=== PATIENT | female | born 1990 | race African-American/Black ===

== ENCOUNTER 2016-10-15 09:09 | Emergency (ER) | payer SELFPAY ==
--- NOTE | 2016-10-15 10:11 | ER Document Report ---
ED Flu Like - General Chief Complaint: Flu Symptoms Stated Complaint: FLU SYMPTOMS Time seen by provider: 10:00 Mode of Arrival: Ambulatory Information source: [facility] Records Notes: This 26-year-old female patient comes emergency room complaining of onset Thursday of cough, body aches, nasal congestion, nausea vomiting diarrhea. She works at [employer] and reports several other people there have the same symptoms. The patient is sitting on the stretcher sobbing and crying uncontrollably. She states this is because she does not like hospitals. She does suffer from bipolar disorder. TRAVEL OUTSIDE OF THE [place] IN LAST 30 DAYS: No - Related Data Allergies/Adverse Reactions: blueberry Allergy (Verified 10/15/16 10:12) No Known Drug Allergies Allergy (Verified 10/15/16 10:12) strawberry Allergy (Verified 10/15/16 10:12) Past Medical History - General Information source: Patient, [facility] Records - Social History Smoking Status: Never Smoker Cigarette use (# per day): No Chew tobacco use (# tins/day): No Smoking Education Provided: No Frequency of alcohol use: None Drug Abuse: Bath salts Occupation: [employer] Family History: Reviewed & Not Pertinent Patient has suicidal ideation: No Patient has homicidal ideation: No - Medical History Medical History: Negative Psychiatric Medical History: Reports: Hx Bipolar Disorder Surgical Hx: Negative - Immunizations Immunizations up to date: Yes Hx Diphtheria, Pertussis, Tetanus Vaccination: No Review of Systems - Review of Systems Constitutional: Chills, Fever EENT: Nose congestion, Nose discharge, Sinus discharge Cardiovascular: No symptoms reported Respiratory: Cough Gastrointestinal: Diarrhea, Nausea, Vomiting Genitourinary: No symptoms reported Female Genitourinary: No symptoms reported Musculoskeletal: No symptoms reported Skin: No symptoms reported Hematologic/Lymphatic: No symptoms reported Neurological/Psychological: No symptoms reported Physical Exam - Vital signs Interpretation: Normal - HEENT Head: Normocephalic, Atraumatic Eyes: Normal Pupils: PERRL Tympanic membrane: Retracted Pharynx: Normal Neck: Normal - Respiratory Respiratory status: No respiratory distress Breath sounds: Nonproductive cough - Course breath sounds with some rhonchi on forced cough - Cardiovascular Rhythm: Regular - Abdominal Inspection: Normal - Back Back: Normal - Extremities General upper extremity: Normal ROM General lower extremity: Normal inspection - Neurological Neuro grossly intact: Yes - Psychological Associated symptoms: Depressed - Sobbing, crying - Skin Skin Temperature: Warm Skin Moisture: Dry Skin Color: Normal Discharge - Discharge Clinical Impression: Influenza Condition: Stable Disposition: HOME, SELF-CARE Additional Instructions: Influenza: What are conditions that should receive medical attention? The development of difficulty breathing. Lip color changes to blue or purple. Persistent vomiting and unable to keep liquids down with signs of dehydration such as: dizziness when standing, unable to urinate, or if child/infant is crying no tears are noticed. Is less responsive than normal or becomes confused. How do I decrease the spread of flu in my home? Taking care of the sick patient at home: Keep the sick person in a room separate from the common areas of the house. Keep the "sickroom" door closed. If the person with the flu needs to leave the home, they should cover their nose/mouth when coughing or sneezing and wear a disposable (surgical) mask if available. These masks may be available at your local pharmacy, medical supply and hardware store. If the sick person is in common areas of the house, have them wear a surgical mask. If possible, have the sick person use a separate bathroom that should be cleaned daily with a household disinfectant. Household Cleaning, laundry and waste disposal: Tissues and other disposable items used by the sick person should be thrown away in the trash. Wash your hands after touching these used items. No special waste disposal is required. Keep surfaces (especially bedside tables, bathroom surfaces, and toys for children) clean by wiping them down with a safe household disinfectant according to the directions on the product label. Per CDC advice, most people will not receive testing to confirm flu. For more information, you can call the Centers for Disease Control and Prevention (CDC) Hotline at 3-325-RWRMassive SolutionsINFO This line is available in Bhutanese and [place]an, 24 hours a day, 7 days a week. Or www.[employer] or www.cdc.gov Flu-Like Illness Home Instructions: The influenza virus infection can cause a wide rage of symptoms, including: Fever, cough, sore throat, body aches, headaches, chills, fatigue, with some patients reporting diarrhea and vomiting Like seasonal influenza A, H1N1 ("swine flu")in humans can vary in severity from mild to severe Severe illness with pneumonia, respiratory failure and even is possible Certain groups might be more likely to develop a severe illness from H1N1 infection. Sometimes bacterial infections may occur at the same time as or after infection with influenza viruses and lead to pneumonias, ear infections, or sinus infections. How Flu Spreads The main way that influenza viruses spread is through respiratory droplets of coughs and sneezes. This can happen when someone with the infection coughs or sneezes and the particles fly through the air and land on other people and surfaces. If the person covers their mouth and nose with their hand but does not wash their hands immediately, then these germs are passed onto the next object that they touch. People with Influenza A who are cared for at home should: Check with their doctor about any special care that they might need if they are or have a health condition such as diabetes, heart disease, asthma or emphysema. Also, limit caregiver to one (if possible). women or those with chronic health conditions should not take care of the flu patient unless necessary. Check with their doctor about whether or not medications are needed that may lessen the symptoms of the flu. Stay at home until 24 hours fever free without the use of fever reducing medication. Get plenty of rest and avoid other healthy people in your home. Drink plenty of clear liquids to keep from getting dehydrated. Take medications like Tylenol (Acetaminophen), Advil/Motrin/Nuprin ( Ibuprofen) or Aleve (Naproxen) for fevers and aches. All children under the age of 18 years of age should not take aspirin or products containing aspirin (e.g. Pepto Bismol), as this can cause a rare serious illness called Jose Syndrome. Over the counter medications for flu and colds may help, but it is very important to follow the package directions. Remember that the medicine may help the symptoms, but it will not help prevent others from getting sick if they are around you. Cover coughs and sneezes using your bent arm. Clean hands with soap and water or an alcohol-based hand rub often, especially after using tissues to cough or sneeze. Encourage hand washing frequently for all people living in the home! The sick person should not have visitors other than caregivers. Encourage concerned loved ones to call instead of visit. Avoid close contact with others-do not go to work or school while sick. DRINK PLENTY OF FLUIDS. TRY ROBITUSSIN-DM FOR COUGH CONTROL. TAKE TYLENOL EVERY FOUR HOURS FOR FEVER. TAKE ALEVE 2 TABLETS EVERY 12 HOURS FOR ACHES AND PAINS. GET PLENTY OF REST AND SLEEP. GET A FLU SHOT NEXT YEAR. RETURN TO THE EMERGENCY ROOM IF ANY NEW OR WORSENING SYMPTOMS. Forms: Return to Work
[2016-10-15 10:37] VITALS: BP 110/65
== END 2016-10-15 10:37 | disposition home or self-care (01) ==
LOC: ER 09:09
DX: J11.1 Influenza due to unidentified influenza virus with other respiratory manifestations (principal); M79.1 Myalgia; R50.9 Fever, unspecified; R19.7 Diarrhea, unspecified
CPT/HCPCS: 99283

== ENCOUNTER 2016-12-09 16:08 | Emergency (ER) | payer SELFPAY ==
--- NOTE | 2016-12-09 16:21 | ER Document Report ---
ED Medical Screen (RME) - General Chief Complaint: Shortness Of Breath Stated Complaint: SHORTNESS OF BREATH/CHEST PAIN Time seen by provider: 16:20 Mode of Arrival: Wheelchair Information source: Patient TRAVEL OUTSIDE OF THE [place] IN LAST 30 DAYS: No - HPI Patient complains to provider of: chest pain, SOB Onset: This afternoon - 3pm Onset/Duration: Gradual Quality of pain: Achy, Pressure Severity: Moderate Pain Level: 3 Associated Symptoms: Chest pain, Cough (productive), Shortness of breath Exacerbated by: Denies Relieved by: Denies Notes: 12/09/16 16:25 Patient is a 26-year-old female who presents to the emergency room complaining of chest pain and shortness of breath this started around 3 PM, this information was provided by her significant other, because patient refused to answer any questions, she was sitting in the chair, crying, and hyperventilating , repeatedly asking her significant other to take her home that she did not want to be here, when I inquired to patient is to why she wanted to leave she said she doesn't like hospitals, I repeatedly told her that it really like to help her by ordering some tests and trying to figure out why she is feeling the way she is feeling, but if that she did not wish to stay I could not force any testing or imprisoned her in the emergency room, at which point in time she stood up out of her chair, stated "Fuck hospitals" and walked out - Related Data Allergies/Adverse Reactions: blueberry Allergy (Verified 10/15/16 10:12) No Known Drug Allergies Allergy (Verified 10/15/16 10:12) strawberry Allergy (Verified 10/15/16 10:12) Past Medical History Renal/ Medical History: Denies: Hx Peritoneal Dialysis Psychiatric Medical History: Reports: Hx Bipolar Disorder - Immunizations Immunizations up to date: Yes Hx Diphtheria, Pertussis, Tetanus Vaccination: No Doctor's Discharge - Discharge Disposition: ELOPED
== END 2016-12-09 16:25 | disposition left against medical advice (07) ==
LOC: ER 16:08
DX: R07.89 Other chest pain (principal); R06.02 Shortness of breath; Z53.29 Procedure and treatment not carried out because of patient's decision for other reasons; Z91.013 Allergy to seafood
CPT/HCPCS: 99281

== ENCOUNTER 2017-11-30 15:02 | Emergency (ER) | payer MEDICAID ==
--- NOTE | 2017-11-30 15:51 | ER Document Report ---
ED Medical Screen (RME) - General Chief Complaint: Abdominal Cramping Stated Complaint: CRAMPING Time Seen by Provider: 11/30/17 15:49 Notes: pt has pelvic pain but no bleeding/discharge. had normal US two weeks ago. is 16wks preg. TRAVEL OUTSIDE OF THE [place] IN LAST 30 DAYS: No - Related Data Allergies/Adverse Reactions: blueberry Allergy (Verified 11/30/17 15:04) No Known Drug Allergies Allergy (Verified 11/30/17 15:04) strawberry Allergy (Verified 11/30/17 15:04) Past Medical History - Social History Chew tobacco use (# tins/day): No Frequency of alcohol use: None Drug Abuse: None Renal/ Medical History: Denies: Hx Peritoneal Dialysis Psychiatric Medical History: Reports: Hx Bipolar Disorder - Immunizations Immunizations up to date: Yes Hx Diphtheria, Pertussis, Tetanus Vaccination: No Physical Exam - Vital signs Vitals: Temp Pulse Resp BP Pulse Ox 97.9 F 103 H 16 121/68 100 11/30/17 15:08 11/30/17 15:08 11/30/17 15:08 11/30/17 15:08 11/30/17 15:08 Course - Vital Signs Vital signs: Temp Pulse Resp BP Pulse Ox 97.9 F 103 H 16 121/68 100 11/30/17 15:08 11/30/17 15:08 11/30/17 15:08 11/30/17 15:08 11/30/17 15:08
[2017-11-30 16:26] LABS: ABSOLUTE EOSINOPHILS # (AUTO) 0.1 10^3/uL (0.0-0.6); ABSOLUTE LYMPHOCYTES (AUTO) 1.9 10^3/uL (0.5-4.7); ABSOLUTE MONOCYTES (AUTO) 0.4 10^3/uL (0.1-1.4); ABSOLUTE NEUT (AUTO) 3.1 10^3/uL (1.7-8.2); BASOPHILS % (AUTO) 0.5 % (0-2); EOSINOPHILS % (AUTO) 2.7 % (0-6); HEMATOCRIT 37.9 % (36.0-47.0); HEMOGLOBIN 12.8 g/dL (12.0-15.5); MEAN CORPUSCULAR HEMOGLOBIN 28.8 pg (27.0-33.4); MEAN CORPUSCULAR HGB CONC 33.8 g/dL (32.0-36.0); MEAN CORPUSCULAR VOLUME 85 fl (80-97); MONOCYTES % (AUTO) 6.5 % (3-13); PLATELET COUNT 170 10^3/uL (150-450); RED BLOOD COUNT 4.44 10^6/uL (3.72-5.28); RED CELL DISTRIBUTION WIDTH 13.5 % (11.5-14.0); SEGMENTED NEUTROPHILS % (AUTO) 56.3 % (42-78); TOTAL CELLS COUNTED % (AUTO) 100 %; WHITE BLOOD COUNT 5.5 10^3/uL (4.0-10.5)
[2017-11-30 16:41] LABS: APPEARANCE,URINE SLIGHTLY-CLOUDY; BILIRUBIN,URINE NEGATIVE (NEGATIVE); COLOR,URINE YELLOW; GLUCOSE, URINE 50 mg/dL (NEGATIVE); KETONES,URINE NEGATIVE (NEGATIVE); LEUKOCYTE ESTERASE,URINE SMALL (NEGATIVE); NITRITE,URINE NEGATIVE (NEGATIVE); PROTEIN,URINE NEGATIVE (NEGATIVE); URINE SPECIFIC GRAVITY 1.023
[2017-11-30 16:45] LABS: ALANINE AMINOTRANSFERASE 16 U/L (9-52); ALBUMIN 3.7 g/dL (3.5-5.0); ALKALINE PHOSPHATASE 40 U/L (38-126); ANION GAP 7 (5-19); ASPARTATE AMINO TRANSFERASE 23 U/L (14-36); BILIRUBIN,DIRECT 0.2 mg/dL (0.0-0.4); BILIRUBIN,TOTAL 0.6 mg/dL (0.2-1.3); BLOOD UREA NITROGEN 12 mg/dL (7-20); CALCIUM 9.7 mg/dL (8.4-10.2); CARBON DIOXIDE 25 mmol/L (22-30); CHLORIDE 105 mmol/L (98-107); GLUCOSE 101 mg/dL (75-110); POTASSIUM 3.8 mmol/L (3.6-5.0); SODIUM 136.6 mmol/L (137-145); TOTAL PROTEIN 6.8 g/dL (6.3-8.2)
[2017-11-30] MEDS ORDERED: ACETAMINOPHEN 325 MG TABLET PO ONE (19:52)
[2017-11-30] MEDS ORDERED: ONDANSETRON 4 MG TAB.RAPDIS PO ONE (19:52)
--- NOTE | 2017-11-30 19:52 | ER Document Report ---
ED General - General Chief Complaint: Abdominal Cramping Stated Complaint: CRAMPING Time Seen by Provider: 11/30/17 15:49 TRAVEL OUTSIDE OF THE [place] IN LAST 30 DAYS: No - HPI Notes: Patient is a 27-year-old female approximately 16 weeks who presents to the ED complaining of pelvic cramping that was initially intermittent, but has become relatively constant over the last day. Patient states that she has not had any vaginal discharge, odor, or bleeding. She has had a decreased appetite with occasional nausea and vomiting this morning. Patient states that she is urinating normally and having normal bowel movement. Patient states that the pain does not radiate. Her SYSTEM SUPPORT ADMINISTRATOR is the women[facility] clinic and she reports having an ultrasound couple weeks ago which was normal. She has no other significant past medical history. Denies any smoking, IV drug use, or alcohol use. Denies any drug allergies. Denies any headache, fever, neck pain, URI, sore throat, chest pain, palpitations, syncope, cough, shortness of breath, wheeze, dyspnea, diarrhea, urinary retention, dysuria, hematuria, back pain, loss of control of bowel or bladder, numbness/tingling, saddle anesthesia, muscle paralysis/weakness, or rash. - Related Data Allergies/Adverse Reactions: blueberry Allergy (Verified 11/30/17 15:04) No Known Drug Allergies Allergy (Verified 11/30/17 15:04) strawberry Allergy (Verified 11/30/17 15:04) Past Medical History - Social History Smoking Status: Never Smoker Chew tobacco use (# tins/day): No Frequency of alcohol use: None Drug Abuse: None Family History: Reviewed & Not Pertinent Patient has suicidal ideation: No Patient has homicidal ideation: No Renal/ Medical History: Denies: Hx Peritoneal Dialysis Psychiatric Medical History: Reports: Hx Bipolar Disorder - Immunizations Immunizations up to date: Yes Hx Diphtheria, Pertussis, Tetanus Vaccination: No Review of Systems - Review of Systems -: Yes All other systems reviewed and negative Physical Exam - Vital signs Vitals: Temp Pulse Resp BP Pulse Ox 97.9 F 103 H 16 121/68 100 11/30/17 15:06 11/30/17 15:06 11/30/17 15:06 11/30/17 15:06 11/30/17 15:06 - Notes Notes: PHYSICAL EXAMINATION: GENERAL: Well-appearing, well-nourished and in no acute distress. A&Ox4. Answers questions appropriately. NECK: Normal range of motion, supple without lymphadenopathy LUNGS: Breath sounds clear to auscultation bilaterally and equal. No wheezes rales or rhonchi. HEART: Regular rate and rhythm without murmurs, rubs, gallops. ABDOMEN: Soft, nondistended abdomen. No masses appreciated. Normal bowel sounds present. No CVA tenderness bilaterally. + tenderness lower abdomen, minimal guarding. Musculoskeletal: FROM to passive/active. Strength 5+/5. Extremities: No cyanosis, clubbing, or edema b/l. Peripheral pulses 2+. Capillary refill less than 3 seconds. NEUROLOGICAL: Normal speech, normal gait. Normal sensory, motor exams PSYCH: Normal mood, normal affect. SKIN: Warm, Dry, normal turgor, no rashes or lesions noted. Course - Re-evaluation Re-evalutation: 11/30/17 21:53 Patient is an afebrile, well-hydrated, 27-year-old female who presents to the ED with pelvic cramping and possible placental abruption the ultrasound. Vitals are acceptable. PE is otherwise unremarkable. Patient is currently hemodynamically stable with an unremarkable CBC, CMP, and urinalysis. See the transvaginal ultrasound report. Patient has not had any vaginal bleeding. I did call and review this case with SYSTEM SUPPORT ADMINISTRATOR Dr. Carr. Patient is currently less than 24 weeks gestation so there is nothing that she will do in the emergency department at this time, but would like her to follow-up with the office tomorrow morning. Low suspicion/risk for acute appendicitis, bowel obstruction, acute cholecystitis, acute cholangitis, perforated diverticulitis, incarcerated hernia, pancreatitis, perforated ulcer, peritonitis, sepsis, pelvic inflammatory disease, ectopic , tubo-ovarian abscess, ovarian torsion. Patient is aware that her condition can change from initial presentation and she needs to monitor symptoms closely and seek medical attention if any acute changes. Conservative measures otherwise for symptoms. Recheck with OBGYN tomorrow. Recheck with your PCM in 1 week. Return to the ED with any worsening/concerning symptoms otherwise as reviewed in discharge. Patient is in agreement. - Vital Signs Vital signs: Temp Pulse Resp BP Pulse Ox 98.2 F 84 16 106/67 97 11/30/17 20:10 11/30/17 20:10 11/30/17 20:10 11/30/17 20:10 11/30/17 20:10 - Laboratory Result Diagrams: 11/30/17 16:05 11/30/17 16:05 Laboratory results interpreted by me: 11/30/17 11/30/17 16:05 16:05 Sodium 136.6 L Urine Glucose (UA) 50 H Urine Urobilinogen 2.0 H Ur Leukocyte Esterase SMALL H Discharge - Discharge Clinical Impression: Pelvic pain affecting Qualifiers: Trimester: second trimester Qualified Code(s): O26.892 - Other specified related conditions, second trimester; R10.2 - Pelvic and perineal pain ; R10.2 - Pelvic and perineal pain Condition: Stable Disposition: HOME, SELF-CARE Instructions: Mild Placental Abruption ([facility]), Pelvic Pain in ([facility]) Additional Instructions: maintain fluid intake Proper hygenic technique Keep the skin clean Tylenol as needed Return immediately if symptoms worsen Recheck with OBGYN tomorrow F/u with your PCM in 1 week for a recheck Return to the ED with any development of [place]/fever, trouble with vision, eye redness, worsening pain, urethral discharge, urinary retention, blood in the urine, flank pain, abdominal pain, n/v, Chest Pain, shortness of breath, joint pains, trouble breathing, or any other worsening/concerning symptoms as needed otherwise. Referrals: HENRI SPEARS MD [Primary Care Provider] - Follow up in 1 week SOPHIE CARR MD [ACTIVE STAFF] - Follow up tomorrow
--- NOTE | 2017-11-30 21:36 | RADIOLOGY REPORT (SQ) ---
EXAM DESCRIPTION: U/S OB LIMITED COMPLETED DATE/TIME: 11/30/2017 9:05 pm REASON FOR STUDY: pelvic pain, COMPARISON: None. TECHNIQUE: Limited endovaginal grayscale ultrasound for evaluation of specific requested obstetrical parameters. LIMITATIONS: None. FINDINGS: CERVICAL LENGTH: 3.4 cm. Mild funneling with endocervical fluid. MICHAEL: 8.7 cm. FHR: 149 beats per minute. PRESENTATION: Breech OTHER: Anterior placenta with a focal hypoechoic rounded 4 cm bulge which shows internal Doppler dete ctable vascularity. Deep to this, hypoechoic crescent of retroplacental hematoma is likely. Trace f ree fluid. IMPRESSION: 1. Limited OB ultrasound is concerning for placental abruption. 2. Living IUP. 3. Mild funneling and endocervical fluid. Trimester of : Second trimester - 13 weeks 1 day to 27 weeks 6 days. Pertinent positive or negative findings of the imaging study reported as a CRITICAL EXAM to ER nurse Ebony at21:29 on 11/30/2017. Category of Critical Exam: Placental abruption. TECHNICAL DOCUMENTATION: JOB ID: [id number] [employer]- All Rights Reserved Reading location - IP/workstation name: [email or web address]
[2017-11-30 22:23] VITALS: BP 119/73
== END 2017-11-30 22:23 | disposition home or self-care (01) ==
LOC: ER 15:02
DX: O26.892 Other specified pregnancy related conditions, second trimester (principal); R10.2 Pelvic and perineal pain; R63.0 Anorexia; O21.9 Vomiting of pregnancy, unspecified; Z3A.00 Weeks of gestation of pregnancy not specified; Z91.018 Allergy to other foods
CPT/HCPCS: 99284; 36415; 85025; 80053; 81001; 76815; J3490; S0119

== ENCOUNTER 2018-05-21 01:20 | Observation (INO) | payer MEDICAID ==
--- NOTE | 2018-05-21 01:36 | ER Document Report ---
ED General - General Chief Complaint: Vaginal Pain Stated Complaint: VAGINAL PROBLEM Time Seen by Provider: 05/21/18 01:35 Notes: 27-year-old female 27-year-old female 3 days vaginal delivery presents with resolved crampy lower abdominal pain earlier today and "something hanging out of my vaginal area" which she says she noticed tonight when she is going in the back. She thought it would like a blood clot but it was "still attached" she tried to brush it away and it did not move. She said she has been having some spotting since the delivery but otherwise has felt well. She has no known history of bleeding disorders, did not have any comp occasions in the hospital. TRAVEL OUTSIDE OF THE [place] IN LAST 30 DAYS: No - Related Data Allergies/Adverse Reactions: blueberry Allergy (Verified 05/21/18 01:48) No Known Drug Allergies Allergy (Verified 05/21/18 01:48) strawberry Allergy (Verified 05/21/18 01:48) Past Medical History - Social History Smoking Status: Never Smoker Family History: Reviewed & Not Pertinent Renal/ Medical History: Denies: Hx Peritoneal Dialysis Psychiatric Medical History: Reports: Hx Bipolar Disorder - Immunizations Immunizations up to date: Yes Hx Diphtheria, Pertussis, Tetanus Vaccination: No Physical Exam - Vital signs Vitals: Temp Pulse Resp BP Pulse Ox 98.3 F 94 20 128/78 H 99 05/21/18 01:27 05/21/18 01:27 05/21/18 01:27 05/21/18 01:27 05/21/18 01:27 Course - Re-evaluation Re-evalutation: 05/21/18 01:44 day 3 presents with protruding material from the vagina suspicious for retained placenta. Afebrile with normal vitals and looks well. 05/21/18 01:[address] Acosta from OB. She will evaluate the patient but suspects the patient has retained placenta with close cervix and will need to go to the operating room. Ordered labs. Admitted. 05/21/18 02:03 Seen by PROFESSOR OF MANAGEMENT. They extracted a large amount of retained membranes. They recommended admission, Unasyn cultures and labs. - Vital Signs Vital signs: Temp Pulse Resp BP Pulse Ox 98.3 F 94 20 128/78 H 99 05/21/18 01:27 05/21/18 01:27 05/21/18 01:27 05/21/18 01:27 05/21/18 01:27 Discharge - Discharge Clinical Impression: Retained placenta after delivery without hemorrhage but with other complication Condition: Fair Disposition: ADMITTED INPATIENT Admitting Provider: [facility] Admitted: Post
[2018-05-21] MEDS ORDERED: AMPICILLIN SOD/SULBACTAM 3 GM VIAL IV ONE (02:02)
[2018-05-21] MEDS ORDERED: KETOROLAC TROMETHAMINE INJ/PF 30 MG/1 ML SDV IV ONE (02:14)
[2018-05-21] MEDS ORDERED: BENZOCAINE/MENTHOL AEROSOL SPRAY 56 ML TOP PRN (02:21)
[2018-05-21] MEDS ORDERED: PROMETHAZINE HCL 25 MG SUPP.RECT PR PRN (02:21)
[2018-05-21] MEDS ORDERED: ACETAMINOPHEN WITH CODEINE #3 TABLET PO PRN (02:21)
[2018-05-21] MEDS ORDERED: PROMETHAZINE HCL 25 MG TABLET PO PRN (02:21)
[2018-05-21] MEDS ORDERED: DIPHENHYDRAMINE HCL 25 MG CAPSULE PO PRN (02:21)
[2018-05-21] MEDS ORDERED: ZOLPIDEM TARTRATE 5 MG TABLET PO PRN (02:21)
[2018-05-21] MEDS ORDERED: GLYCERIN/WITCH HAZEL LEAF 1 EACH MED..PAD TP PRN (02:21)
[2018-05-21] MEDS ORDERED: ACETAMINOPHEN 325 MG TABLET PO PRN (02:21)
[2018-05-21] MEDS ORDERED: PROMETHAZINE HCL INJ 25 MG/1 ML VIAL IV PRN ×3 (02:21→12:24)
[2018-05-21] MEDS ORDERED: NA PHOS,M-B/NA PHOS,DI-BA (ADULT) 133 ML ENEMA PR PRN (02:21)
[2018-05-21] MEDS ORDERED: MISOPROSTOL 0.2 MG TABLET PR ONE (02:21)
[2018-05-21] MEDS ORDERED: MAGNESIUM HYDROXIDE SUSP 30 ML UDCUP PO PRN (02:21)
[2018-05-21] MEDS ORDERED: PSEUDOEPHEDRINE HCL 30 MG TABLET PO PRN (02:21)
[2018-05-21] MEDS ORDERED: DIBUCAINE 1% OINTMENT 28 GM TP PRN (02:21)
--- NOTE | 2018-05-21 02:27 | PDOC H&P ---
History of Present Illness Admission Date/PCP: 05/21/18 01:58 HENRI SPEARS MD Patient complains of: vaginal bleeding and something coming from vagina History of Present Illness: VANESA HERRERA is a 27 year old female s/p with [facility] in [place] on Thursday (now PPD#4). She reports uncomplicated with [facility] and negative GBS. She reports that she had an uncomplicated vaginal delivery and reports that the placenta was delivered/removed. SHe denies fevers/chills/ nausea/vomiting. SHe is currently . She was reportedly seen at [facility] in the beginning of her but then delivered with [facility] because she does not like hospitals. Past Medical History Gynecological Infection: No 1 Baby 1 Female Delivery: Spontaneous Vaginal Delivery Psychiatric Medical History: Reports: Bipolar Disorder Past Surgical History Past Surgical History: Reports: None Social History Information Source: Patient Lives with: Family Smoking Status: Never Smoker Frequency of Alcohol Use: None Hx Recreational Drug Use: No Drugs: None Hx Prescription Drug Abuse: No - Advance Directive Resuscitation Status: Full Code Family History Family History: Reviewed & Not Pertinent Parental Family History Reviewed: No Children Family History Reviewed: NA Sibling(s) Family History Reviewed.: NA Medication/Allergy Home Medications: Pnv No.95/Ferrous Fum/Folic AC [ Formula] 1 each PO DAILY 05/21/18 Allergies/Adverse Reactions: blueberry Allergy (Verified 05/21/18 01:48) No Known Drug Allergies Allergy (Verified 05/21/18 01:48) strawberry Allergy (Verified 05/21/18 01:48) Review of Systems Constitutional: PRESENT: as per HPI. ABSENT: chills, fever(s), headache(s), weight gain, weight loss Cardiovascular: ABSENT: chest pain, dyspnea on exertion, edema, orthropnea, palpitations Respiratory: ABSENT: cough, hemoptysis Gastrointestinal: ABSENT: abdominal pain, constipation, diarrhea, hematemesis, hematochezia, nausea, vomiting Genitourinary: ABSENT: dysuria, hematuria Musculoskeletal: ABSENT: joint swelling Integumentary: ABSENT: rash, wounds Neurological: ABSENT: abnormal gait, abnormal speech, confusion, dizziness, focal weakness, syncope Psychiatric: ABSENT: anxiety, depression, homidical ideation, suicidal ideation Endocrine: ABSENT: cold intolerance, heat intolerance, polydipsia, polyuria Hematologic/Lymphatic: ABSENT: easy bleeding, easy bruising Physical Exam - Physical Exam Vital Signs: Temp Pulse Resp BP Pulse Ox 98.3 F 94 20 128/78 H 99 05/21/18 01:05/21/18 01:05/21/18 01:05/21/18 01:05/21/18 01:27 General appearance: PRESENT: no acute distress, well-developed, well-nourished Head exam: PRESENT: atraumatic, normocephalic Mouth exam: PRESENT: moist, tongue midline Respiratory exam: PRESENT: clear to auscultation irene, symmetrical, unlabored Cardiovascular exam: PRESENT: RRR. ABSENT: diastolic murmur, rubs, systolic murmur Pulses: PRESENT: normal dorsalis pedis pul, +2 pedal pulses bilateral GI/Abdominal exam: PRESENT: normal bowel sounds, soft. ABSENT: distended, guarding, mass, organolmegaly, rebound, tenderness Rectal exam: PRESENT: deferred Extremities exam: PRESENT: full ROM. ABSENT: calf tenderness, clubbing, pedal edema Neurological exam: PRESENT: alert, awake, oriented to person, oriented to place , oriented to time, oriented to situation, CN II-XII grossly intact. ABSENT: motor sensory deficit Psychiatric exam: PRESENT: appropriate affect, normal mood. ABSENT: homicidal ideation, suicidal ideation Skin exam: PRESENT: dry, intact, warm. ABSENT: cyanosis, rash - Obstetrical Exam External Genitalia: normal Vagina: normal, other - upon initial exam in the ER, membranes visibly protruding from os. SSE: probably 10-12 inches of membranes removed, only approx 1-2 of clot possible placental tissue. Result Status: Imported from PACS Assessment & Plan - Diagnosis (1) Retained placenta after delivery without hemorrhage but with other complication Is this a current diagnosis for this admission?: Yes Plan: Pt with large amount of membranes removed from vagina and cervical os which was open. Reviewed with pt that since os was opened able to tease out membranes but unable to know if all of it is out. reviewed with her that would plan cytotec per rectum (1000mcg placed) and see if can obtain even more to come out. then will plan for US and poss D&C if still with retained products. IV abx for 24 to 48 hours since having to remove retained products remote from delivery. Reviewed with pt risk of infection with having retained products and may need D&C. - Time Time Spent: 30 to 50 Minutes Smoking Cessation Education: 3 to 10 minutes Medications reviewed and adjusted accordingly: Yes Anticipated discharge: Home Within: within 48 hours - Inpatient Certification Based on my medical assessment, after consideration of the patient's comorbidities, presenting symptoms, or acuity I expect that the services needed warrant INPATIENT care.: Yes I certify that my determination is in accordance with my understanding of Medicare's requirements for reasonable and necessary INPATIENT services [42 CFR 412.3e].: Yes Medical Necessity: Need For IV Fluids, Need for IV Antibiotics, Need for Surgery Post Hospital Care: D/C Computer Game Tester Documentation
[2018-05-21 02:48] LABS: ABSOLUTE EOSINOPHILS # (AUTO) 0.7 10^3/uL (0.0-0.6); ABSOLUTE LYMPHOCYTES (AUTO) 2.3 10^3/uL (0.5-4.7); ABSOLUTE MONOCYTES (AUTO) 0.7 10^3/uL (0.1-1.4); ABSOLUTE NEUT (AUTO) 7.8 10^3/uL (1.7-8.2); BASOPHILS % (AUTO) 0.3 % (0-2); HEMATOCRIT 32.8 % (36.0-47.0); LYMPHOCYTES % (AUTO) 20.2 % (13-45); MEAN CORPUSCULAR HEMOGLOBIN 28.3 pg (27.0-33.4); MEAN CORPUSCULAR HGB CONC 33.5 g/dL (32.0-36.0); MEAN CORPUSCULAR VOLUME 85 fl (80-97); PLATELET COUNT 161 10^3/uL (150-450); RED BLOOD COUNT 3.87 10^6/uL (3.72-5.28); RED CELL DISTRIBUTION WIDTH 15.3 % (11.5-14.0); SEGMENTED NEUTROPHILS % (AUTO) 67.5 % (42-78); TOTAL CELLS COUNTED % (AUTO) 100 %; WHITE BLOOD COUNT 11.6 10^3/uL (4.0-10.5)
[2018-05-21 03:04] LABS: ANION GAP 7 (5-19); BLOOD UREA NITROGEN 9 mg/dL (7-20); CALCIUM 9.6 mg/dL (8.4-10.2); CARBON DIOXIDE 24 mmol/L (22-30); CHLORIDE 107 mmol/L (98-107); GLUCOSE 117 mg/dL (75-110); POTASSIUM 3.4 mmol/L (3.6-5.0); SODIUM 138.4 mmol/L (137-145)
[2018-05-21] MEDS ORDERED: MISOPROSTOL 0.2 MG TABLET ONE (03:11)
[2018-05-21] MEDS ORDERED: RINGERS SOLUTION,LACTATED 1,000 ML IV PRN (03:28)
[2018-05-21] MEDS: IBUPROFEN 800 MG TABLET PO SCH ×2 (05:09→15:34)
[2018-05-21] MEDS ORDERED: AMPICILLIN SOD/SULBACTAM 3 GM VIAL IV SCH (08:30)
[2018-05-21] MEDS ORDERED: FAMOTIDINE 20 MG TABLET PO SCH (10:00)
[2018-05-21] MEDS ORDERED: FERROUS SULFATE 325 MG TABLET PO SCH (10:00)
[2018-05-21] MEDS ORDERED: PRENATAL VITAMIN W DHA CAPSULE PO SCH (10:00)
[2018-05-21] MEDS ORDERED: DOCUSATE SODIUM 100 MG CAPSULE PO SCH (10:00)
[2018-05-21] MEDS ORDERED: SENNOSIDES/DOCUSATE 8.6-50 MG 1 EACH TABLET PO SCH (10:00)
[2018-05-21] MEDS: ACETAMINOPHEN WITH CODEINE #3 TABLET PO PRN ×2 (10:21→15:32)
--- NOTE | 2018-05-21 10:21 | RADIOLOGY REPORT (SQ) ---
EXAM DESCRIPTION: U/S NON-OB PELVIS W/O DOP COMPLETED DATE/TIME: 05/21/2018 10:08 am REASON FOR STUDY: PPD#4, membranes removed in ER, eval or retain POC COMPARISON: None. TECHNIQUE: Dynamic and static grayscale images acquired of the pelvis via transabdominal approach an d recorded on PACS. Additional selected color Doppler and spectral images recorded. LIMITATIONS: None. FINDINGS: UTERUS: 2.6 cm hypoechoic area at the fundus, possibly a fibroid. ENDOMETRIAL STRIPE: Heterogenous material in the endometrial cavity. On real-time imaging motion is noted. CERVIX: No nabothian cysts. RIGHT OVARY AND DOPPLER: Ovary not visualized. LEFT OVARY AND DOPPLER: Ovary not visualized. FREE FLUID: None noted. OTHER: No other significant finding. MEASUREMENTS: UTERUS: 8 3 x 9 x 14.9 cm. ENDOMETRIAL STRIPE: 13 mm. RIGHT OVARY: Not visualized. LEFT OVARY: Not visualized. IMPRESSION: HETEROGENOUS MATERIAL IN THE ENDOMETRIAL CAVITY. SUSPICIOUS FOR RETAINED PRODUCTS. POSSIBLE UTERINE FIBROID. TECHNICAL DOCUMENTATION: JOB ID: [id number]- All Rights Reserved Rev-01/08 Reading location - IP/workstation name: [email or web address]
[2018-05-21] MEDS ORDERED: KETOROLAC TROMETHAMINE 60 MG/2 ML SDV ONE (10:24)
[2018-05-21] MEDS ORDERED: DEXAMETHASONE SOD PHOSPHATE INJ 4 MG/1 ML VIAL ONE (10:24)
[2018-05-21] MEDS ORDERED: ONDANSETRON HCL INJ/PF 4 MG/2 ML SDV ONE (10:24)
[2018-05-21] MEDS: AMPICILLIN SODIUM/SULBACTAM NA 3 GM in NORMAL SALINE 100 ML IV SCH ×2 (10:25→15:56)
[2018-05-21] MEDS ORDERED: MIDAZOLAM 2 MG/2 ML INJ ONE ×2 (11:49→11:57)
[2018-05-21] MEDS ORDERED: METOCLOPRAMIDE HCL INJ/PF 10 MG/2 ML SDV ONE (11:49)
[2018-05-21] MEDS ORDERED: FAMOTIDINE INJ/PF 20 MG/2 ML SDV IV ONE (11:50)
[2018-05-21] MEDS ORDERED: FENTANYL CITRATE INJ/PF 100 MCG/2 ML AMPUL ONE (11:56)
[2018-05-21] MEDS ORDERED: LIDOCAINE 2% INJ-PF (20 MG/ML) 10 ML AMPUL ONE (11:56)
[2018-05-21] MEDS ORDERED: KETAMINE HCL INJ 500 MG/10 ML VIAL ONE (11:56)
[2018-05-21] MEDS ORDERED: PROPOFOL INJ 200 MG/20 ML VIAL IV ONE ×2 (11:57→11:58)
[2018-05-21] MEDS ORDERED: DIPHENHYDRAMINE HCL 50 MG/ML VIAL IV PRN (12:24)
[2018-05-21] MEDS ORDERED: FENTANYL CITRATE INJ/PF 100 MCG/2 ML AMPUL IV PRN ×3 (12:24)
[2018-05-21] MEDS ORDERED: MEPERIDINE HCL/PF INJ 25 MG/1 ML DISP.SYRIN IV PRN (12:24)
[2018-05-21] MEDS ORDERED: ONDANSETRON HCL INJ/PF 4 MG/2 ML SDV IV PRN (13:19)
--- NOTE | 2018-05-21 13:28 | PDOC DISCHARGE SUMMARY ---
General - Admit/Disc Date/PCP Admission Date/Primary Care Provider: 05/21/18 01:58 HENRI SPEARS MD Discharge Date: 05/21/18 - Discharge Diagnosis (1) Retained placenta after delivery without hemorrhage but with other complication Is this a current diagnosis for this admission?: Yes - Additional Information Resuscitation Status: Full Code Discharge Diet: As Tolerated Discharge Activity: Balance Activity w/Rest, No Lifting/Push/Pulling, Pelvic Rest, Slowly Increase Activity, No tub bath, Walk Frequently Home Medications: Pnv No.95/Ferrous Fum/Folic AC [ Formula] 1 each PO DAILY 05/21/18 History of Present Illness History of Present Illness: VANESA HERRERA is a 27 year old female Hospital Course Hospital Course: pt had a D&C for tetained products of conception Physical Exam - Physical Exam Vital Signs: Temp Pulse Resp BP Pulse Ox 98.7 F 73 14 111/74 100 05/21/18 11:04 05/21/18 11:04 05/21/18 11:04 05/21/18 11:04 05/21/18 11:04 General appearance: PRESENT: no acute distress Respiratory exam: PRESENT: clear to auscultation irene - Obstetrical Exam External Genitalia: normal Vagina: normal, other - upon initial exam in the ER, membranes visibly protruding from os. SSE: probably 10-12 inches of membranes removed, only approx 1-2 of clot possible placental tissue. Result Laboratory Results: 05/21/18 02:28 05/21/18 02:28 05/21/18 05/21/18 05/21/18 02:28 02:28 02:28 WBC 11.6 H RBC 3.87 Hgb 11.0 L Hct 32.8 L MCV 85 MCH 28.3 MCHC 33.5 RDW 15.3 H Plt Count 161 Seg Neutrophils % 67.5 Lymphocytes % 20.2 Monocytes % 6.0 Eosinophils % 6.0 Basophils % 0.3 Absolute Neutrophils 7.8 Absolute Lymphocytes 2.3 Absolute Monocytes 0.7 Absolute Eosinophils 0.7 H Absolute Basophils 0.0 Sodium 138.4 Potassium 3.4 L Chloride 107 Carbon Dioxide 24 Anion Gap 7 BUN 9 Creatinine 0.67 Est GFR ( Amer) > 60 Est GFR (Non-Af Amer) > 60 Glucose 117 H Calcium 9.6 Blood Type B POSITIVE Antibody Screen NEGATIVE Impressions: Pelvis Ultrasound 05/21/18 07:59 IMPRESSION: HETEROGENOUS MATERIAL IN THE ENDOMETRIAL CAVITY. SUSPICIOUS FOR RETAINED PRODUCTS. POSSIBLE UTERINE FIBROID. Plan Discharge Plan: d/c and follow up in one week or prn Time Spent: Less than 30 Minutes
--- NOTE | 2018-05-21 13:41 | OPERATIVE REPORT E ---
Operative Report NAME: VANESA HERRERA : 1990 AGE: 27Y DATE OF SURGERY: 05/21/2018 ROOM: 221 PREOPERATIVE DIAGNOSIS: Retained placental products. POSTOPERATIVE DIAGNOSIS: Retained placental products. OPERATION: Suction D and C and repair of episiotomy. SURGEON: Fidelina HUFFMAN M.D. ANESTHESIA: General. ESTIMATED BLOOD LOSS: Less than 50 mL. TISSUE REMOVED: Contents of uterus. PROCEDURE: Patient was placed in the dorsal lithotomy position, prepped and draped in sterile fashion. Speculum was placed. Cervix was visualized and grasped with single-tooth tenaculum, sounded to a depth of 22 cm. Suction curettage was performed with a moderate amount of tissue being recovered. Sharp curettage was performed followed by repeat suction. Single-tooth tenaculum was removed and hemostasis was noted. It was noted then that the episiotomy had opened and it was repaired with 2-0 Vicryl in the usual fashion. Patient tolerated it well and was taken to recovery in good condition. DICTATING PHYSICIAN: Fidelina HUFFMAN M.D. [id number] PHY#: [id number] ID: [id number] JOB#: [id number] ACCT: [id number] cc:Fidelina HUFFMAN M.D. >
[2018-05-21] MEDS ORDERED: ACETAMINOPHEN 1,000 MG/100 ML RTUPB IV ONE (14:12)
[2018-05-21 18:03] VITALS: BP 126/78
== END 2018-05-21 19:00 | disposition home or self-care (01) ==
LOC: ER 01:20 → EH 01:58 → INTOOBSV 01:58 → 2S 03:08
PROVIDERS: ADMIT Student in an Organized Health Care Education/Training Program; ATTEND Student in an Organized Health Care Education/Training Program
PROC: 10D17Z9 Manual Extraction of Products of Conception, Retained, Via Natural or Artificial Opening (ICD-10-PCS; principal; 2018-05-21 13:00)
DX: O73.1 Retained portions of placenta and membranes, without hemorrhage (principal)
CPT/HCPCS: 99284; 86900; 86901; 36415; 87040; 86850; 85025; 80048; 88305 ×2; 76856; 59160; G0378; J2250; J3490 ×3; J1100; J1885 ×2; J3010; J0295; J2765; J2405; J2704; S0028; J0131; 952

== ENCOUNTER 2019-06-03 11:27 | Emergency (ER) | payer SELFPAY ==
[2019-06-03] MEDS ORDERED: IBUPROFEN 600 MG TABLET PO ONE (11:38)
[2019-06-03] MEDS ORDERED: IPRATROPIUM/ALBUTEROL 0.5-2.5 MG/3 ML AMPUL NEB ONE (11:38)
[2019-06-03] MEDS ORDERED: ONDANSETRON 4 MG TAB.RAPDIS PO ONE (11:39)
[2019-06-03] MEDS ORDERED: NORMAL SALINE 1000 ML 1,000 ML IV ONE ×2 (11:41→14:41)
--- NOTE | 2019-06-03 11:41 | ER Document Report ---
ED Medical Screen (RME) - General Chief Complaint: Cold Symptoms Stated Complaint: DIFFICULTY BREATHING Time Seen by Provider: 06/03/19 11:38 Primary Care Provider: HENRI SPEARS MD [Primary Care Provider] - Follow up as needed TRAVEL OUTSIDE OF THE [place] IN LAST 30 DAYS: No - HPI Notes: 06/03/19 11:39 Patient is a 28-year-old female no significant past medical history who presents complaining nasal congestion/discharge, hoarseness of her voice, dry cough, chills, vomiting/diarrhea that began 3 days ago. Patient states that her work sent her today because she felt dizzy and lightheaded. She did not have a complete syncopal episode. I have treated and performed a rapid initial assessment of this patient. A comprehensive ED assessment and evaluation of the patient, analysis of test results and completion of medical decision making process will be conducted by additional ED providers. PHYSICAL EXAMINATION: GENERAL: Well-appearing, well-nourished and in no acute distress. A&Ox4. Answers questions appropriately. + hoarseness of voice Lungs: scant wheeze rt lung. no retractions. - Related Data Allergies/Adverse Reactions: blueberry Allergy (Verified 06/03/19 11:36) No Known Drug Allergies Allergy (Verified 06/03/19 11:36) strawberry Allergy (Verified 06/03/19 11:36) Past Medical History Renal/ Medical History: Denies: Hx Peritoneal Dialysis Psychiatric Medical History: Reports: Hx Bipolar Disorder, Hx Depression - Immunizations Immunizations up to date: Yes Hx Diphtheria, Pertussis, Tetanus Vaccination: No Physical Exam - Vital signs Vitals: Temp Pulse Resp BP Pulse Ox 98.4 F 60 22 H 125/91 H 100 06/03/19 11:29 06/03/19 11:29 06/03/19 11:29 06/03/19 11:29 06/03/19 11:29 Course - Vital Signs Vital signs: Temp Pulse Resp BP Pulse Ox 98.4 F 60 22 H 125/91 H 100 06/03/19 11:29 06/03/19 11:29 06/03/19 11:29 06/03/19 11:29 06/03/19 11:29 Doctor's Discharge - Discharge Referrals: HENRI SPEARS MD [Primary Care Provider] - Follow up as needed
--- NOTE | 2019-06-03 12:31 | RADIOLOGY REPORT (SQ) ---
EXAM DESCRIPTION: CHEST 2 VIEWS COMPLETED DATE/TIME: 06/03/2019 12:14 pm REASON FOR STUDY: cough COMPARISON: None. EXAM PARAMETERS: NUMBER OF VIEWS: two views TECHNIQUE: Digital Frontal and Lateral radiographic views of the chest acquired. RADIATION DOSE: NA LIMITATIONS: none FINDINGS: LUNGS AND PLEURA: No opacities, masses or pneumothorax. No pleural effusion. MEDIASTINUM AND HILAR STRUCTURES: No masses or contour abnormalities. HEART AND VASCULAR STRUCTURES: Heart normal size. No evidence for failure. BONES: No acute findings. HARDWARE: None in the chest. OTHER: No other significant finding. IMPRESSION: NO EVIDENCE OF FOCAL AIRSPACE DISEASE OR OTHER ACUTE CARDIOPULMONARY PROCESS. TECHNICAL DOCUMENTATION: JOB ID: [id number] [employer]- All Rights Reserved Reading location - IP/workstation name: [email or web address]
[2019-06-03 12:59] LABS: A TYPE INFLUENZA AG NEGATIVE (NEGATIVE); B INFLUENZA AG NEGATIVE (NEGATIVE)
[2019-06-03] MEDS ORDERED: METOCLOPRAMIDE HCL INJ/PF 10 MG/2 ML SDV IV ONE (14:43)
[2019-06-03 14:51] LABS: ABSOLUTE EOSINOPHILS # (AUTO) 0.2 10^3/uL (0.0-0.6); ABSOLUTE MONOCYTES (AUTO) 0.3 10^3/uL (0.1-1.4); ABSOLUTE NEUT (AUTO) 4.7 10^3/uL (1.7-8.2); BASOPHILS % (AUTO) 0.3 % (0-2); EOSINOPHILS % (AUTO) 2.5 % (0-6); HEMATOCRIT 43.2 % (36.0-47.0); LYMPHOCYTES % (AUTO) 27.8 % (13-45); MEAN CORPUSCULAR HEMOGLOBIN 28.2 pg (27.0-33.4); MEAN CORPUSCULAR HGB CONC 32.4 g/dL (32.0-36.0); MEAN CORPUSCULAR VOLUME 87 fl (80-97); MONOCYTES % (AUTO) 4.6 % (3-13); PLATELET COUNT 184 10^3/uL (150-450); RED BLOOD COUNT 4.98 10^6/uL (3.72-5.28); RED CELL DISTRIBUTION WIDTH 13.6 % (11.5-14.0); SEGMENTED NEUTROPHILS % (AUTO) 64.8 % (42-78); TOTAL CELLS COUNTED % (AUTO) 100 %; WHITE BLOOD COUNT 7.2 10^3/uL (4.0-10.5)
[2019-06-03 15:03] LABS: ALBUMIN 4.1 g/dL (3.5-5.0); ALKALINE PHOSPHATASE 46 U/L (38-126); ANION GAP 7 (5-19); ASPARTATE AMINO TRANSFERASE 22 U/L (14-36); BILIRUBIN,DIRECT 0.2 mg/dL (0.0-0.4); BILIRUBIN,TOTAL 1.5 mg/dL (0.2-1.3); BLOOD UREA NITROGEN 14 mg/dL (7-20); CALCIUM 10.1 mg/dL (8.4-10.2); CARBON DIOXIDE 25 mmol/L (22-30); CHLORIDE 107 mmol/L (98-107); GLUCOSE 102 mg/dL (75-110); POTASSIUM 3.5 mmol/L (3.6-5.0); TOTAL PROTEIN 7.4 g/dL (6.3-8.2)
--- NOTE | 2019-06-03 15:44 | ER Document Report ---
ED General - General Chief Complaint: Cold Symptoms Stated Complaint: DIFFICULTY BREATHING Time Seen by Provider: 06/03/19 11:38 Primary Care Provider: HENRI SPEARS MD [ACTIVE STAFF] - Follow up in 3-5 days Mode of Arrival: Ambulatory Information source: Patient Notes: This 28-year-old female presents emergency department with complaints of nasal congestion dry cough sore throat and vomiting diarrhea for the past 3 days. Reports that she took some Tylenol and Benadryl at the onset of the symptoms but did not help. She became dizzy and lightheaded today at work. She denies past history. Reports nobody is ill at home but she does work at a restaurant. She denies fever. Denies pain with void. Reports decreased eating and drinking. TRAVEL OUTSIDE OF THE [place] IN LAST 30 DAYS: No - HPI Onset: Other - 3 days Onset/Duration: Persistent Associated symptoms: Diarrhea, Nausea, Vomiting Exacerbated by: Denies Relieved by: Denies Similar symptoms previously: No Recently seen / treated by doctor: No - Related Data Allergies/Adverse Reactions: blueberry Allergy (Verified 06/03/19 11:36) No Known Drug Allergies Allergy (Verified 06/03/19 11:36) strawberry Allergy (Verified 06/03/19 11:36) Past Medical History - General Information source: Patient Last Menstrual Period: April denies reports not sexually active - Social History Smoking Status: Unknown if Ever Smoked Chew tobacco use (# tins/day): No Frequency of alcohol use: None Drug Abuse: None Lives with: Family Family History: Reviewed & Not Pertinent Patient has suicidal ideation: No Patient has homicidal ideation: No Renal/ Medical History: Denies: Hx Peritoneal Dialysis Psychiatric Medical History: Reports: Hx Bipolar Disorder, Hx Depression Surgical Hx: Negative - Immunizations Immunizations up to date: Yes Hx Diphtheria, Pertussis, Tetanus Vaccination: No Review of Systems - Review of Systems Notes: Review HPI for review of systems., All other systems negative Physical Exam - Vital signs Vitals: Temp Pulse Resp BP Pulse Ox 98.4 F 60 22 H 125/91 H 100 06/03/19 11:29 06/03/19 11:29 06/03/19 11:29 06/03/19 11:29 06/03/19 11:29 - General General appearance: Alert In distress: None - HEENT Head: Normocephalic, Atraumatic Eyes: Normal Conjunctiva: Normal Extraocular movements intact: Yes Pupils: PERRL Ears: Normal External canal: Normal Tympanic membrane: Normal Sinus: Normal Nasal: Normal Mouth/Lips: Normal Mucous membranes: Moist Pharynx: Erythema, Tonsillar hypertrophy Neck: Normal, Supple - Respiratory Respiratory status: No respiratory distress Chest status: Nontender Breath sounds: Normal Chest palpation: Normal - Cardiovascular Rhythm: Regular Heart sounds: Normal auscultation Murmur: No - Abdominal Inspection: Normal Distension: No distension Bowel sounds: Normal Tenderness: Nontender - Back Back: Normal - Extremities General upper extremity: Normal ROM General lower extremity: Normal ROM - Neurological Neuro grossly intact: Yes Cognition: Normal Orientation: AAOx4 [place] Coma Scale Eye Opening: Spontaneous [place] Coma Scale Verbal: Oriented [place] Coma Scale Motor: Obeys Commands [place] Coma Scale Total: 15 Speech: Normal - Psychological Associated symptoms: Normal affect, Normal mood - Skin Skin Temperature: Warm Skin Moisture: Dry Skin Color: Normal Course - Re-evaluation Re-evalutation: 06/03/19 15:40 28-year-old presents emergency department with complaints of nausea vomiting diarrhea for the past 3 days. Drinking p.o. fluids without problems. Also complains of sore throat. Denies fever. Denies exposure to strep. 06/03/19 Labs unremarkable strep negative. Chest x-ray negative. pt looks better after 2 LNS. Tonsillar hypertrophy with erythema noted, good airway, steroid ordered with Penicillin. She was also provided with Zofran. She was instructed to stay home rest return for worsening symptoms trouble swallowing. She verbalized understand all instructions. 06/03/19 12:43 06/03/19 12:43 MCV 87 fl (80-97) 06/03/19 12:43 MCH 28.2 pg (27.0-33.4) 06/03/19 12:43 MCHC 32.4 g/dL (32.0-36.0) 06/03/19 12:43 RDW 13.6 % (11.5-14.0) 06/03/19 12:43 Seg Neutrophils % 64.8 % (42-78) 06/03/19 12:43 Chloride 107 mmol/L (98-107) 06/03/19 12:43 Carbon Dioxide 25 mmol/L (22-30) 06/03/19 12:43 Anion Gap 7 (5-19) 06/03/19 12:43 Est GFR ( Amer) > 60 (>60) 06/03/19 12:43 Glucose 102 mg/dL (75-110) 06/03/19 12:43 Calcium 10.1 mg/dL (8.4-10.2) 06/03/19 12:43 Total Bilirubin 1.5 mg/dL (0.2-1.3) H 06/03/19 12:43 AST 22 U/L (14-36) 06/03/19 12:43 Alkaline Phosphatase 46 U/L (38-126) 06/03/19 12:43 Total Protein 7.4 g/dL (6.3-8.2) 06/03/19 12:43 Albumin 4.1 g/dL (3.5-5.0) 06/03/19 12:43 Urine Color YELLOW 06/03/19 15:11 Urine Appearance CLEAR 06/03/19 15:11 Urine pH 6.0 (5.0-9.0) 06/03/19 15:11 Ur Specific [place] 1.020 06/03/19 15:11 Urine Protein NEGATIVE mg/dL (NEGATIVE) 06/03/19 15:11 Urine Glucose (UA) NEGATIVE mg/dL (NEGATIVE) 06/03/19 15:11 Urine Ketones 20 mg/dL (NEGATIVE) H 06/03/19 15:11 Urine Blood NEGATIVE (NEGATIVE) 06/03/19 15:11 Urine Nitrite NEGATIVE (NEGATIVE) 06/03/19 15:11 Ur Leukocyte Esterase NEGATIVE (NEGATIVE) 06/03/19 15:11 Urine WBC (Auto) 1 /HPF 06/03/19 15:11 Urine RBC (Auto) 0 /HPF 06/03/19 15:11 Chest X-Ray 06/03/19 11:38 IMPRESSION: NO EVIDENCE OF FOCAL AIRSPACE DISEASE OR OTHER ACUTE CARDIOPULMONARY PROCESS. - Vital Signs Vital signs: Temp Pulse Resp BP Pulse Ox 98.7 F 73 18 113/67 98 06/03/19 17:00 06/03/19 17:00 06/03/19 17:00 06/03/19 17:00 06/03/19 17:00 - Laboratory Result Diagrams: 06/03/19 12:43 06/03/19 12:43 Laboratory results interpreted by me: 06/03/19 06/03/19 12:43 15:11 Potassium 3.5 L Total Bilirubin 1.5 H Urine Ketones 20 H - Diagnostic Test Radiology reviewed: Image reviewed, Reports reviewed Discharge - Discharge Clinical Impression: Nausea vomiting and diarrhea, Sore throat Condition: Stable Disposition: HOME, SELF-CARE Instructions: Antinausea Medication ([facility]), Diarrhea, Nonspecific ([facility]), Intravenous (IV) Fluids ([facility]), OTC Antidiarrhea Medication ([facility]), Sore Throat ([facility]), Vomiting ([facility]) Additional Instructions: *You have been evaluated for nausea/vomiting/diarrhea, sore throat Your strep test was negative. A throat culture is pending. You will be contacted should you need a different antibiotic. In the meantime you have been treated with penicillin. *Take medication as prescribed for nausea *Over the counter anti-diarrheal as indicated *Ensure adequate fluid intake as discussed to prevent dehydration *Follow up with a primary care provider within one week for recheck *Return to ED for worsening condition, changes, needs, unable to swallow or difficulty breathing concerns Forms: Elevated Blood Pressure, Return to Work Referrals: HENRI SPEARS MD [ACTIVE STAFF] - Follow up in 3-5 days
[2019-06-03 16:09] LABS: APPEARANCE,URINE CLEAR; BILIRUBIN,URINE NEGATIVE (NEGATIVE); COLOR,URINE YELLOW; GLUCOSE, URINE NEGATIVE (NEGATIVE); KETONES,URINE 20 mg/dL (NEGATIVE); LEUKOCYTE ESTERASE,URINE NEGATIVE (NEGATIVE); NITRITE,URINE NEGATIVE (NEGATIVE); PROTEIN,URINE NEGATIVE (NEGATIVE); UROBILINOGEN,URINE NEGATIVE mg/dL (<2.0)
[2019-06-03] MEDS ORDERED: DEXAMETHASONE SOD PHOSPHATE INJ 4 MG/1 ML VIAL IV ONE (16:25)
[2019-06-03] MEDS ORDERED: PENICILLIN G BENZATHINE 1.2 MILLION UNIT/2 ML DISP.SYRIN IM ONE (16:35)
[2019-06-03] MEDS ORDERED: ONDANSETRON ODT 4 MG TAB (6 TAB/ER DISP) PO PRN (16:36)
[2019-06-03 17:02] VITALS: BP 113/67
== END 2019-06-03 17:02 | disposition home or self-care (01) ==
LOC: ER 11:27
DX: J02.9 Acute pharyngitis, unspecified (principal); R11.2 Nausea with vomiting, unspecified; R19.7 Diarrhea, unspecified; R06.00 Dyspnea, unspecified; R09.81 Nasal congestion
CPT/HCPCS: 36415; 87070; 87880; 85025; 81025; 80053; 81001; 87804; 71046; J1100; S0119; J2765; J0561; J7030; J7620; 94640; 96361; 96372; 96374; 96375; 99283